=== PATIENT | female | born 1950 | race Caucasian/White ===

== ENCOUNTER → 2020-07-03 | Outpatient (CLI) | payer OTHER ==
[~2020-07-03] MED LIST: BENTYL10 MG PO; LOMOTIL TABLET1 EACH PO; MELOXICAM7.5 MG PO; MYRBETRIQ25 MG PO; PANTOPRAZOLE SO40 MG PO; SERTRALINE HCL50 MG PO; VITAMIN B12 IM; VITAMIN D PO; b-12 IM
== END ==
LOC: MRI 07:36
PROVIDERS: ATTEND Family Medicine
DX: M51.26 Other intervertebral disc displacement, lumbar region (principal)
CPT/HCPCS: 72148

== ENCOUNTER → 2024-02-01 | Outpatient (REF) | payer MEDICARE | LOC: EDSTATUS 09:00 → MRI 09:00 | PROVIDERS: ATTEND Pain Medicine Pain Medicine | DX: M48.04 Spinal stenosis, thoracic region (principal); M96.1 Postlaminectomy syndrome, not elsewhere classified | CPT/HCPCS: 72146; 72148 ==